=== PATIENT | male | born 1995 | race Caucasian/White ===

== ENCOUNTER 2016-09-16 12:36 | Emergency (ER) | payer OTHER ==
[2016-09-16 13:00] VITALS: BP 165/69
--- NOTE | 2016-09-16 13:41 | UC ---
Eye Complaint HPI - HPI Summary HPI Summary: 20 male presents with complaints of left eye irritation, swelling, redness and itchiness that began last night while sleeping. He states he woke up and was itching his eye. Stats when he woke up there was a green discharge and it was crusted shut. Has not tried any medications. Denies vision loss or pain. Does not feel like he has something in his eye. Denies right eye irritation at this time. He thinks he has pink eye. Does not wear contacts and glasses. No other complaints at this time. - History of Current Complaint Chief Complaint: UCEye Stated Complaint: LEFT EYE COMPLAINT Time Seen by Provider: 09/16/16 13:19 Hx Obtained From: Patient Onset/Duration: Sudden Onset, Lasting Days - 1 day, Worse Since Timing: Constant Severity Initially: Mild Severity Currently: Mild Location of Injury: Conjunctiva Aggravating Factor(s): Nothing Alleviating Factor(s): Nothing Associated Signs And Symptoms: Positive: Drainage (Purulent), Swelling. Negative: Photophobia, Vision Impairment Bilateral, Vision Impairment Right, Vision Impairment Left - Allergies/Home Medications Allergies/Adverse Reactions: Allergies Allergy/AdvReac Type Severity Reaction Status Date / Time No Known Allergies Allergy Verified 09/16/16 13:00 PMH/Surg Hx/FS Hx/Imm Hx Respiratory History Of: Reports: Asthma - Surgical History Surgical History: Yes Surgery Procedure, Year, and Place: L ear - Family History Known Family History: Positive: None - Social History Alcohol Use: Rare Substance Use Type: None Smoking Status (MU): Never Smoked Tobacco Review of Systems Constitutional: Negative Skin: Negative Eyes: Drainage - purulent, Eye Redness ENT: Negative Respiratory: Negative Cardiovascular: Negative Gastrointestinal: Negative Musculoskeletal: Negative Neurological: Negative All Other Systems Reviewed And Are Negative: Yes Physical Exam Triage Information Reviewed: Yes Appearance: Well-Appearing, No Pain Distress, Well-Nourished Vital Signs: Initial Vital Signs Temp 98.7 F 09/16/16 12:50 Pulse 92 09/16/16 12:50 Resp 14 09/16/16 12:50 BP 165/69 09/16/16 12:50 Pulse Ox 98 09/16/16 12:50 Elevated BP noted. patient states he is nervous when he goes to the doctors. also took when patient first arrived in room. recommend follow up with PCP to re -check. Vital Signs Reviewed: Yes Eyes: Positive: Conjunctiva Inflamed - erythematous, left eye, Discharge - green /yellow, Other: - EOMI, PERRLA, normal visual acuity, minimal swelling of lid when compared to right eye. right eye normal ENT: Positive: Normal ENT inspection, Hearing grossly normal, Pharynx normal, TMs normal Dental Exam: Normal Neck: Positive: Supple, Nontender, No Lymphadenopathy Respiratory: Positive: Chest non-tender, Lungs clear, Normal breath sounds Cardiovascular: Positive: RRR, No Murmur, Pulses Normal Musculoskeletal: Positive: Strength Intact, ROM Intact Neurological: Positive: Alert Skin Exam: Normal Eye Complaint Course/Dx - Course Course Of Treatment: patient appears to be suffering from bacterial conjunctivitis. prescribed polytrim as he does not wear contacts or glasses. aware of worsening signs and symptoms. warm compresses and advil. follow up. - Differential Dx/Diagnosis Differential Diagnosis/HQI/PQRI: Conjunctivitis, Corneal Abrasion, Orbital Cellulitis, Uveitis, Other Provider Diagnoses: bacterial conjunctivitis, left eye Discharge - Discharge Plan Condition: Stable Disposition: HOME Prescriptions: Polymyx/Trimethoprim OPTH* [Polytrim OPHTH*] 1 drop LEFT EYE Q3H #1 btl Patient Education Materials: Conjunctivitis (ED) Referrals: [facility] [Outside] No Primary Care Phys,NOPCP [Primary Care Provider] - Additional Instructions: Use prescribed medication as directed x7 days. Do not touch your eyes as much to prevent spreading as this is very contagious. Warm compresses to the area will help rid discharge. Advil for pain and inflammation. If your symptoms begin into your other eyes, use drops in that eye too. Wash towels and pillow cases with hot water. If symptoms do not improve or worsen please return. Follow up with PCP to re-check elevated BP.
== END 2016-09-16 14:00 | disposition home or self-care (01) ==
LOC: UCCORT 12:36
DX: H10.32 Unspecified acute conjunctivitis, left eye (principal); J45.909 Unspecified asthma, uncomplicated
CPT/HCPCS: 99202; G0463